=== PATIENT | female | born 1980 | race Caucasian/White ===

== ENCOUNTER 2018-03-15 05:33 | Day surgery (SDC) | payer OTHER ==
[~2018-03-15] VITALS: Ht 162.6 cm; Wt 151.0 kg
[~2018-03-15 05:33] MED LIST: CITALOPRAM HBR40 MG PO; GABAPENTIN300 MG PO
[2018-03-15] MEDS ORDERED: TYLENOL REGULA325 MG PO (06:06)
[2018-03-15 06:13] VITALS: BP 136/83
[2018-03-15 09:00] VITALS: BP 136/84
[2018-03-15 09:21] VITALS: BP 135/84
== END 2018-03-15 09:28 | disposition home or self-care (01) ==
LOC: SDC 05:33
DX: N84.0 Polyp of corpus uteri (principal); N92.1 Excessive and frequent menstruation with irregular cycle; Z87.891 Personal history of nicotine dependence
CPT/HCPCS: 88305; J0131; J0330; J1100; J1885; J2250; J2405; J3010; Q0175